=== PATIENT | male | born 1960 | race Caucasian/White ===

== ENCOUNTER 2017-01-24 09:40 | Emergency (ER) | payer MEDICARE, OTHER ==
[~2017-01-24] VITALS: Ht 182.9 cm; Wt 107.0 kg
[~2017-01-24 09:40] MED LIST: ASPI-621 PO; ATOR10TA PO; CARV12.543 PO; CINA60TA PO; FURO80TA77 PO; LORA-445 PO; LOSA1TAB16 PO; PRAS10TA4 PO
[2017-01-24 10:13] LABS: BLOOD UREA NITROGEN 26 mg/dL (7-18)
[2017-01-24] MEDS ORDERED: SODIUM CHLORIDE FLUSH 10ML SYR IVF ONE (11:30)
[2017-01-24] MEDS ORDERED: ONDANSETRON 2MG/ML, 2ML IVPush ONE (11:30)
[2017-01-24] MEDS ORDERED: MORPHINE SULFATE 4 MG/ML, 1ML ONE ×2 (12:39→14:01)
[2017-01-24] MEDS: MORPHINE SULFATE 4 MG/ML, 1ML IVPush PRN ×2 (12:43→14:02)
[2017-01-24] MEDS ORDERED: METRONIDAZOLE PMX 500MG/100ML 100 ML IVPB ONE (14:30)
[2017-01-24] MEDS ORDERED: CIPROFLOXACIN/PMX 400MG/200ML 200 ML IV ONE (14:30)
[2017-01-24] MEDS ORDERED: CIPROFLOXACIN LACTATE 200 MG in DEXTROSE 5% 100 ML IV ONE (14:30)
[2017-01-24] MEDS ORDERED: CIPROFLOXACIN/PMX 400MG/200ML 200 ML ONE (14:45)
[2017-01-24] MEDS ORDERED: METRONIDAZOLE PMX 500MG/100ML 100 ML ONE (14:45)
[2017-01-24] MEDS ORDERED: metroNIDAZOLE 500 MG TABLET ONE (14:45)
[2017-01-24 15:36] VITALS: BP 140/79
== END 2017-01-24 16:33 | disposition home or self-care (01) ==
LOC: ED 12:38
DX: A09 Infectious gastroenteritis and colitis, unspecified (principal); E78.00 Pure hypercholesterolemia, unspecified; I12.0 Hypertensive chronic kidney disease with stage 5 chronic kidney disease or end stage renal disease; N18.6 End stage renal disease; Z99.2 Dependence on renal dialysis; I25.2 Old myocardial infarction
CPT/HCPCS: 36415; 74176; 80048; 82040; 85025; 96374; 96375; 96376; 99285; J0744

== ENCOUNTER 2018-07-16 21:42 | Inpatient (IN) | payer MEDICARE ==
[~2018-07-16] VITALS: Ht 182.9 cm; Wt 111.1 kg
[~2018-07-16 21:42] MED LIST changes: -ASPI-621 PO; +ASPI81TA45 PO; -LOSA1TAB16 PO; +LOSA1TAB19 PO
[2018-07-16] MEDS ORDERED: ACETAMINOPHEN 500 MG TABLET ONE (22:24)
[2018-07-16] MEDS ORDERED: SODIUM CHLORIDE FLUSH 10ML SYR IVF ONE (22:30)
[2018-07-16] MEDS ORDERED: ACETAMINOPHEN 500 MG TABLET PO ONE (22:30)
[2018-07-16 23:03] LABS: BASOPHILS # (AUTO) 0.03 x10^3/uL (0-0.1); BASOPHILS % (AUTO) 1 % (0-1); EOSINOPHILS # (AUTO) 0.17 x10^3/uL (0-0.4); EOSINOPHILS % (AUTO) 3 % (1-7); LYMPHOCYTES # (AUTO) 1.64 x10^3/uL (1-3.4); LYMPHOCYTES % (AUTO) 27 % (22-44); MD NO; MEAN CORPUSCULAR HEMOGLOBIN 36.2 pg (27.5-34.5); MEAN CORPUSCULAR VOLUME 103.2 fL (81-97); MEAN PLATELET VOLUME 7.6 fL (7.4-10.4); MONOCYTES # (AUTO) 0.75 x10^3/uL (0.2-0.8); MONOCYTES % (AUTO) 13 % (2-9); NEUTROPHILS # (AUTO) 3.39 x10^3/uL (1.8-6.8); NEUTROPHILS % (AUTO) 57 % (42-75); PLATELET COUNT 198 x10^3/uL (130-400); RED BLOOD COUNT 3.37 x10^6/uL (4.38-5.82)
[2018-07-16 23:12] LABS: INTERNATIONAL NORMALIZED RATIO 0.96 (0.93-1.1); PROTHROMBIN TIME 10.2 Seconds (9.6-11.5)
[2018-07-16 23:13] LABS: ALBUMIN 3.8 g/dL (3.4-5.0); ANION GAP 7 mmol/L (5-15); CALCIUM 9.6 mg/dL (8.5-10.1); CHLORIDE 95 mmol/L (98-107); CREATININE 6.88 mg/dL (0.7-1.3)
[2018-07-16 23:17] LABS: TROPONIN I < 0.015 ng/mL (0.000-0.045)
[2018-07-17] VITALS (9 sets, daily range): BP systolic 113–149; BP diastolic 73–95
[2018-07-17] MEDS: ACETAMINOPHEN 325 MG TABLET PO PRN ×2 (02:27→21:08)
[2018-07-17] MEDS: NICOTINE 14MG/24 HR PATCH.TD24 TD SCH ×2 (02:27→20:56)
[2018-07-17] MEDS ORDERED: POLYETHYLENE GLYCOL 17 GM PACKET PO PRN (02:30)
[2018-07-17] MEDS ORDERED: ONDANSETRON 2MG/ML, 2ML IVPush PRN (02:30)
[2018-07-17] MEDS ORDERED: PROMETHAZINE 25 MG/ML, 1ML IM PRN (02:30)
[2018-07-17] MEDS ORDERED: LABETALOL 5MG/ML, 20ML IVPush PRN (02:30)
[2018-07-17] MEDS ORDERED: hydrALAzine 20 MG/ML, 1ML IVPush PRN (02:30)
[2018-07-17] MEDS ORDERED: GABAPENTIN 300 MG CAPSULE PO PRN (02:30)
[2018-07-17] MEDS ORDERED: BISACODYL 10 MG SUPP PR PRN (02:30)
[2018-07-17] MEDS ORDERED: DOCUSATE 100 MG CAPSULE PO PRN (02:30)
[2018-07-17] MEDS ORDERED: ONDANSETRON ODT 4 MG PO PRN (02:30)
[2018-07-17 02:43] LABS: FREE T4 (FREE THYROXINE) 0.98 ng/dL (0.76-1.46); THYROID STIMULATING HORMONE 1.45 mIU/L (0.358-3.740)
[2018-07-17 03:48] LABS: HEMOGLOBIN A1C 5.5 % (4.2-6.3)
[2018-07-17] MEDS: ASPIRIN 81 MG TABLET EC PO SCH (06:17)
[2018-07-17] MEDS ORDERED: LORazepam 2 MG/ML, 1ML IVPush ONE (08:30)
[2018-07-17 08:57] LABS: MICROSCOPIC AUTO
[2018-07-17 08:58] LABS: CULTURE INDICATED? NO
[2018-07-17] MEDS ORDERED: LOSARTAN 50MG TABLET PO SCH (09:00)
[2018-07-17] MEDS ORDERED: FUROSEMIDE 80 MG TABLET PO SCH (09:00)
[2018-07-17] MEDS: CINACALCET 30 MG TABLET PO SCH (09:54)
[2018-07-17] MEDS: CHOLECALCIFEROL 1,000 UNIT TABLET PO SCH (09:54)
[2018-07-17] MEDS: CARVEDILOL 12.5 MG TABLET PO SCH ×2 (09:55→20:58)
[2018-07-17] MEDS: HYDROCHLOROTHIAZIDE 12.5 MG CAPSULE PO SCH ×2 (09:55→20:57)
[2018-07-17] MEDS: HEPARIN 5,000 UNITS/ML, 1ML SQ SCH ×2 (09:56→17:21)
[2018-07-17] MEDS: LOSARTAN 50MG TABLET PO SCH ×2 (11:49→20:58)
[2018-07-17] MEDS ORDERED: ATORVASTATIN 10 MG TABLET PO SCH (21:00)
[2018-07-18] MEDS: HEPARIN 5,000 UNITS/ML, 1ML SQ SCH ×3 (01:00→17:00)
[2018-07-18 02:30] VITALS: BP 124/81
[2018-07-18 02:35] VITALS: BP 145/86
[2018-07-18 02:40] VITALS: BP 151/100
[2018-07-18 04:17] LABS: ALBUMIN 3.3 g/dL (3.4-5.0); ANION GAP 12 mmol/L (5-15); CALCIUM 8.6 mg/dL (8.5-10.1); CHLORIDE 97 mmol/L (98-107)
[2018-07-18 04:21] LABS: ALANINE AMINOTRANSFERASE 34 U/L (12-78); ALKALINE PHOSPHATASE 52 U/L (45-117); BILIRUBIN,TOTAL 0.3 mg/dL (0.2-1.0); CHOL/HDL RATIO 3.1; CHOLESTEROL, TOTAL 145 mg/dL (140-239); HDL CHOL % 32 % (26-37); HDL CHOLESTEROL (DIRECT) 47 mg/dL (40-60); LDL CHOLESTEROL,CALCULATED 69 mg/dL (54-169); LDL/HDL RATIO 1.5 (0.5-3.0); TOTAL PROTEIN 6.4 g/dL (6.4-8.2); TRIGLYCERIDES 147 mg/dL (50-200); VLDL CHOLESTEROL 29 mg/dL (0-25)
[2018-07-18 04:22] LABS: BASOPHILS # (AUTO) 0.03 x10^3/uL (0-0.1); BASOPHILS % (AUTO) 1 % (0-1); EOSINOPHILS # (AUTO) 0.16 x10^3/uL (0-0.4); EOSINOPHILS % (AUTO) 3 % (1-7); LYMPHOCYTES # (AUTO) 1.92 x10^3/uL (1-3.4); LYMPHOCYTES % (AUTO) 33 % (22-44); MD NO; MEAN CORPUSCULAR HEMOGLOBIN 35.9 pg (27.5-34.5); MEAN CORPUSCULAR HGB CONC 34.8 g/dL (33.2-36.2); MEAN CORPUSCULAR VOLUME 103.3 fL (81-97); MEAN PLATELET VOLUME 8.1 fL (7.4-10.4); MONOCYTES # (AUTO) 0.65 x10^3/uL (0.2-0.8); MONOCYTES % (AUTO) 11 % (2-9); NEUTROPHILS % (AUTO) 53 % (42-75); PLATELET COUNT 156 x10^3/uL (130-400); RED BLOOD COUNT 2.92 x10^6/uL (4.38-5.82); RED CELL DISTRIBUTION WIDTH 13.9 % (9.4-14.8)
[2018-07-18] MEDS: ASPIRIN 81 MG TABLET EC PO SCH (05:38)
[2018-07-18 07:00] VITALS: BP_SYST 127; BP_SYST 138; BP_SYST 143; BP_DIAS 79; BP_DIAS 88; BP_DIAS 94
[2018-07-18] MEDS: ACETAMINOPHEN 325 MG TABLET PO PRN (12:46)
[2018-07-18] MEDS ORDERED: FLUT9.9S NAS (13:12)
[2018-07-18 14:00] VITALS: BP 184/113
[2018-07-18 15:13] VITALS: BP 128/94
[2018-07-18] MEDS: CARVEDILOL 12.5 MG TABLET PO SCH (17:45)
[2018-07-18] MEDS: LOSARTAN 50MG TABLET PO SCH (17:45)
[2018-07-18] MEDS: CHOLECALCIFEROL 1,000 UNIT TABLET PO SCH (17:45)
[2018-07-18] MEDS: CINACALCET 30 MG TABLET PO SCH (17:46)
[2018-07-18] MEDS: HYDROCHLOROTHIAZIDE 12.5 MG CAPSULE PO SCH (17:47)
== END 2018-07-18 18:05 | disposition home or self-care (01) | DRG 73 ==
LOC: ED 22:59 → EDIP 23:22 → 4WST 07-17 00:41
PROVIDERS: ADMIT Internal Medicine; ATTEND Internal Medicine
PROC: 5A1D70Z Performance of Urinary Filtration, Intermittent, Less than 6 Hours Per Day (ICD-10-PCS; principal; 2018-07-18)
DX: G90.9 Disorder of the autonomic nervous system, unspecified (principal); N18.6 End stage renal disease; I13.2 Hypertensive heart and chronic kidney disease with heart failure and with stage 5 chronic kidney disease, or end stage renal disease; E86.0 Dehydration; F10.229 Alcohol dependence with intoxication, unspecified; D63.1 Anemia in chronic kidney disease; E78.00 Pure hypercholesterolemia, unspecified; E78.5 Hyperlipidemia, unspecified; S09.90XA Unspecified injury of head, initial encounter; F17.210 Nicotine dependence, cigarettes, uncomplicated; H81.10 Benign paroxysmal vertigo, unspecified ear; I27.20 Pulmonary hypertension, unspecified; I50.9 Heart failure, unspecified; K21.9 Gastro-esophageal reflux disease without esophagitis; N25.0 Renal osteodystrophy; I25.10 Atherosclerotic heart disease of native coronary artery without angina pectoris; F41.9 Anxiety disorder, unspecified; W18.39XA Other fall on same level, initial encounter; Y93.89 Activity, other specified; Y92.89 Other specified places as the place of occurrence of the external cause; Y99.8 Other external cause status; Z95.5 Presence of coronary angioplasty implant and graft; Z99.2 Dependence on renal dialysis; Z86.19 Personal history of other infectious and parasitic diseases
CPT/HCPCS: 36415; 70450; 70551; 80048; 80053; 80061; 81001; 82040; 82306; 82607; 83036; 83735; 84439; 84443; 84484; 85025; 85610; 86704; 86706; 86803; 87340; 87521; 93005; 93306; 93880; 99285; G0378; J1644; J2060

== ENCOUNTER 2018-09-07 05:54 | Emergency (ER) | payer MEDICARE, OTHER ==
[~2018-09-07] VITALS: Ht 182.9 cm; Wt 118.7 kg
[~2018-09-07 05:54] MED LIST changes: +FLUT9.9S NAS
[2018-09-07 06:03] VITALS: BP 146/103
--- NOTE | 2018-09-07 06:33 | NUR ---
DR. GARCIA AT TO EVAL PT. AND DISCUSS POC.
[2018-09-07] MEDS ORDERED: IBUPROFEN 800 MG TABLET ONE (06:40)
--- NOTE | 2018-09-07 06:43 | NUR ---
ATTEMPTED TO MEDICATE PT. WITH ORDERED MED; PT. REPORTS AT 0400 HE ALREADY TOOK 800MG IBUPROFEN AT HOME WHEN HE WOKE UP WITH THE PAIN. WILL UPDATE DR. GARCIA.
--- NOTE | 2018-09-07 06:45 | NUR ---
PT. TO X-RAY VIA [facility].
[2018-09-07] MEDS ORDERED: IBUPROFEN 200 MG TABLET PO ONE (07:00)
--- NOTE | 2018-09-07 07:07 | NUR ---
DR. GARCIA AWARE OF PT. HAVING ALREADY HAD TAKEN IBUPROFEN; NO NEW ORDERS AT THIS TIME.
--- NOTE | 2018-09-07 07:08 | NUR ---
REPORT TO ANDREA ESPINOZA.
--- NOTE | 2018-09-07 07:38 | NUR ---
Pt in no distress with minimal pain while lying in [place]. Awaiting dispo
== END 2018-09-07 07:48 | disposition home or self-care (01) ==
LOC: ED 06:57
DX: M25.461 Effusion, right knee (principal); J20.9 Acute bronchitis, unspecified; M17.11 Unilateral primary osteoarthritis, right knee; F41.1 Generalized anxiety disorder; I25.2 Old myocardial infarction; I11.0 Hypertensive heart disease with heart failure; I50.9 Heart failure, unspecified
CPT/HCPCS: 71045; 99283

== ENCOUNTER 2019-06-30 08:47 | Outpatient (CLI) | payer MEDICARE, OTHER ==
[~2019-06-30 08:47] MED LIST changes: +OMEP-110 PO; +REGADENOSON 0.4 MG/5 ML SYRINGE ONE; +SEVE800T8 PO
== END 2019-06-30 23:59 | disposition home or self-care (01) ==
LOC: CFH 08:47
PROVIDERS: ATTEND Internal Medicine Cardiovascular Disease
DX: I25.89 Other forms of chronic ischemic heart disease (principal); I25.10 Atherosclerotic heart disease of native coronary artery without angina pectoris; I10 Essential (primary) hypertension; F17.200 Nicotine dependence, unspecified, uncomplicated
CPT/HCPCS: 78452; 93017; A9502; J2785

== ENCOUNTER 2019-07-24 17:15 | Emergency (ER) | payer MEDICARE, OTHER ==
[~2019-07-24] VITALS: Ht 182.9 cm; Wt 116.7 kg
[~2019-07-24 17:15] MED LIST changes: -REGADENOSON 0.4 MG/5 ML SYRINGE ONE
[2019-07-24] MEDS ORDERED: HYDROcodone/APAP 5/325 TABLET ONE ×2 (18:00→19:16)
[2019-07-24] MEDS ORDERED: HYDROcodone/APAP 5/325 TABLET PO PRN (18:00)
[2019-07-24] MEDS ORDERED: CARV25TA12 PO (18:17)
[2019-07-24] MEDS ORDERED: HYDR-3342 PO (18:18)
[2019-07-24 18:50] VITALS: BP 113/70
--- NOTE | 2019-07-24 18:50 | NUR ---
REPORT RECEIVED AND CARE ASSUMED. PT RETURNED FROM CT. NO ACUTE NEURO CHANGES NOTED. VSS. CALL LIGHT IN REACH. NO NEEDS EXPRESSED.
--- NOTE | 2019-07-24 18:59 | NUR ---
ERP AT BEDSIDE TO RECHECK
--- NOTE | 2019-07-24 19:21 | NUR ---
ATTEMPTING TO D/C PT. PT REQUESTING NORCO PRIOR TO D/C. DISCUSSED WITH ERP AND ORDER RECEIVED. PT MEDICATED PER OCT. PT DOES TAKE NORCO PRN AT HOME AND IS IN THE CARE OF HIS DAUGHTER--DECLINING TO STAY FOR REASSESS. OK TO D/C PER ERP. AMBULATES WITH STEADY GAIT. VSS.
[2019-07-24] MEDS ORDERED: HYDROcodone/APAP 5/325 TABLET PO ONE (19:30)
== END 2019-07-24 19:24 | disposition home or self-care (01) ==
LOC: ED 18:28
DX: S06.0X9A Concussion with loss of consciousness of unspecified duration, initial encounter (principal); S60.221A Contusion of right hand, initial encounter; I11.0 Hypertensive heart disease with heart failure; I50.9 Heart failure, unspecified; I25.2 Old myocardial infarction; X58.XXXA Exposure to other specified factors, initial encounter; Y93.89 Activity, other specified; Y92.89 Other specified places as the place of occurrence of the external cause; Y99.8 Other external cause status
CPT/HCPCS: 70450; 93005; 99284

== ENCOUNTER 2020-02-04 14:26 | Emergency (ER) | payer MEDICARE, OTHER ==
[~2020-02-04] VITALS: Ht 182.9 cm; Wt 116.8 kg
[~2020-02-04 14:26] MED LIST changes: +CARV25TA12 PO; +HYDR-3342 PO
--- NOTE | 2020-02-04 15:17 | NUR ---
CUTTING MACHINE TENDER: PT TO ROOM FROM LOBBY AT THIS TIME. FERMIN
[2020-02-04] MEDS ORDERED: ALBUTEROL SULFATE 2.5 MG/3 ML NPPB ONE (16:00)
[2020-02-04] MEDS ORDERED: BENZONATATE 100 MG CAPSULE PO ONE (16:00)
--- NOTE | 2020-02-04 16:11 | NUR ---
GELACIO HIRSCH AT BEDSIDE FOR EVAL
[2020-02-04] MEDS ORDERED: ALBUTEROL SULFATE 2.5MG/0.5ML ONE (16:17)
[2020-02-04] MEDS ORDERED: BENZONATATE 100 MG CAPSULE ONE (16:17)
[2020-02-04 16:22] VITALS: BP 129/75
--- NOTE | 2020-02-04 17:07 | NUR ---
DISCHARGE INSTRUCTIONS REVIEWED
== END 2020-02-04 17:13 | disposition home or self-care (01) ==
LOC: ED 17:04
DX: J44.1 Chronic obstructive pulmonary disease with (acute) exacerbation (principal); I13.2 Hypertensive heart and chronic kidney disease with heart failure and with stage 5 chronic kidney disease, or end stage renal disease; N18.6 End stage renal disease; I50.9 Heart failure, unspecified; I25.2 Old myocardial infarction; M19.90 Unspecified osteoarthritis, unspecified site; E78.00 Pure hypercholesterolemia, unspecified
CPT/HCPCS: 71045; 93005; 94640; 99283; J7512; J7613

== ENCOUNTER 2020-04-10 19:33 | Emergency (ER) | payer MEDICARE, OTHER ==
[~2020-04-10] VITALS: Ht 185.4 cm; Wt 257.0 kg
[2020-04-10 19:38] VITALS: BP 181/97
[2020-04-10] MEDS ORDERED: ALBUTEROL/IPRATROPIUM 2.5MG/0.5MG, 3 ML NPPB ONE (20:30)
[2020-04-10] MEDS ORDERED: ALBUTEROL/IPRATROPIUM 2.5MG/0.5MG, 3 ML ONE (20:41)
== END 2020-04-10 22:27 | disposition home or self-care (01) ==
LOC: ED 22:15
DX: J43.9 Emphysema, unspecified (principal); K42.9 Umbilical hernia without obstruction or gangrene; R06.02 Shortness of breath; Z76.0 Encounter for issue of repeat prescription
CPT/HCPCS: 71045; 94640; 99283; J7512

== ENCOUNTER 2020-04-27 01:46 | Emergency (ER) | payer MEDICARE, OTHER ==
[~2020-04-27] VITALS: Ht 182.9 cm; Wt 119.0 kg
[2020-04-27] MEDS ORDERED: LOSA100T14 PO (01:54)
[2020-04-27 02:27] LABS: BASOPHILS # (AUTO) 0.05 x10^3/uL (0-0.1); BASOPHILS % (AUTO) 1 % (0-1); EOSINOPHILS # (AUTO) 0.15 x10^3/uL (0-0.4); EOSINOPHILS % (AUTO) 3 % (1-7); LYMPHOCYTES # (AUTO) 1.07 x10^3/uL (1-3.4); LYMPHOCYTES % (AUTO) 18 % (22-44); MD NO; MEAN CORPUSCULAR HEMOGLOBIN 33.1 pg (27.5-34.5); MEAN CORPUSCULAR HGB CONC 32.3 g/dL (33.2-36.2); MEAN PLATELET VOLUME 7.2 fL (7.4-10.4); MONOCYTES # (AUTO) 0.83 x10^3/uL (0.2-0.8); MONOCYTES % (AUTO) 14 % (2-9); NEUTROPHILS # (AUTO) 3.88 x10^3/uL (1.8-6.8); NEUTROPHILS % (AUTO) 65 % (42-75); PLATELET COUNT 161 x10^3/uL (130-400); RED BLOOD COUNT 3.21 x10^6/uL (4.38-5.82); RED CELL DISTRIBUTION WIDTH 17.7 % (9.4-14.8)
--- NOTE | 2020-04-27 02:27 | NUR ---
60 YO MALE PRESENTS TO ED WITH BILAT PITTING EDEMA, STATES EDEMA HAS BEEN GETTING WORSE OVER LAST 10 DAYS. R LEG SLIGHTLY GREATER THEN L. PT ATTACHED TO SP02 AND BP MONITOR. BED RAILS UP X2, CALL LIGHT WITHIN REACH, PT EDUCATED ON USE.
[2020-04-27 02:44] LABS: ALBUMIN 3.4 g/dL (3.4-5.0); ANION GAP 10 mmol/L (5-15); CALCIUM 9.2 mg/dL (8.5-10.1); CHLORIDE 99 mmol/L (98-107); CREATININE 6.22 mg/dL (0.7-1.3)
[2020-04-27 02:51] VITALS: BP 137/80
--- NOTE | 2020-04-27 02:59 | NUR ---
PT RESTING COMFORTABLY, VSS. PT ASKING FOR WATER, INSTRUCTED ON NPO STATUS, GLYCERIN SWABS PROVIDED. NO OTHER COMPLAINTS/REQUESTS.
== END 2020-04-27 04:20 ==
LOC: ED 02:38
DX: R60.0 Localized edema (principal); M79.672 Pain in left foot; M79.671 Pain in right foot; M79.89 Other specified soft tissue disorders; R06.02 Shortness of breath; J44.9 Chronic obstructive pulmonary disease, unspecified; I11.0 Hypertensive heart disease with heart failure; I50.9 Heart failure, unspecified; E78.00 Pure hypercholesterolemia, unspecified; F17.210 Nicotine dependence, cigarettes, uncomplicated; N18.6 End stage renal disease; Z99.2 Dependence on renal dialysis
CPT/HCPCS: 36415; 71045; 80048; 82040; 83880; 84484; 85025; 93970; 99285; 99406

== ENCOUNTER 2020-05-27 17:33 | Emergency (ER) | payer MEDICARE, OTHER ==
[~2020-05-27] VITALS: Ht 182.9 cm; Wt 120.8 kg
[~2020-05-27 17:33] MED LIST changes: +LOSA100T14 PO
--- NOTE | 2020-05-27 17:58 | NUR ---
PT C/O SOB THAT HAS BEEN WORSENING. PT STATES HE ISN'T SLEEPING BECAUSE HE IS SHORT OF BREATH. PT GOES TO DIALYSIS 3X WEEK AND WENT TO HID APPT THIS AM. PT HAS AN ACTIVE COUGH WITH YELLOW SPUTUM PRODUCED.
[2020-05-27 18:32] LABS: BASOPHILS % (AUTO) 1 % (0-1); EOSINOPHILS % (AUTO) 6 % (1-7); LYMPHOCYTES % (AUTO) 15 % (22-44); MEAN CORPUSCULAR HEMOGLOBIN 33.6 pg (27.5-34.5); MEAN CORPUSCULAR HGB CONC 32.9 g/dL (33.2-36.2); MEAN PLATELET VOLUME 7.8 fL (7.4-10.4); MONOCYTES % (AUTO) 9 % (2-9); NEUTROPHILS % (AUTO) 69 % (42-75); PLATELET COUNT 236 x10^3/uL (130-400); RED BLOOD COUNT 3.01 x10^6/uL (4.38-5.82); RED CELL DISTRIBUTION WIDTH 17.5 % (9.4-14.8)
[2020-05-27 18:43] LABS: ALANINE AMINOTRANSFERASE 22 U/L (12-78); ALBUMIN 3.7 g/dL (3.4-5.0); ANION GAP 8 mmol/L (5-15); CALCIUM 8.6 mg/dL (8.5-10.1); CHLORIDE 97 mmol/L (98-107); CREATININE 6.24 mg/dL (0.7-1.3)
[2020-05-27 18:44] LABS: ALKALINE PHOSPHATASE 71 U/L (45-117); TOTAL PROTEIN 7.3 g/dL (6.4-8.2)
--- NOTE | 2020-05-27 18:49 | NUR ---
SITTING UP ON EDGE OF BED COUGHING AND ATTEMPTING TO CLEAR MUCOUS. AWAITING FOR RE-EVAL
--- NOTE | 2020-05-27 18:54 | NUR ---
REPORT TO JOSE MENDEZ
--- NOTE | 2020-05-27 18:54 | NUR ---
Pt report from Bhargavi pitts. This rn to assume care of pt.
[2020-05-27 19:04] LABS: MD NO
--- NOTE | 2020-05-27 19:04 | NUR ---
Pt states no further needs at this time. Awaiting testing results.
[2020-05-27 19:05] VITALS: BP 138/79
[2020-05-27] MEDS ORDERED: LORazepam 0.5MG TABLET ONE (20:11)
[2020-05-27] MEDS ORDERED: LORazepam 0.5MG TABLET PO ONE (20:30)
== END 2020-05-27 20:20 | disposition home or self-care (01) ==
LOC: ED 18:08
DX: J44.9 Chronic obstructive pulmonary disease, unspecified (principal); R00.0 Tachycardia, unspecified; R07.9 Chest pain, unspecified; E78.00 Pure hypercholesterolemia, unspecified; I12.0 Hypertensive chronic kidney disease with stage 5 chronic kidney disease or end stage renal disease; N18.6 End stage renal disease; Z99.2 Dependence on renal dialysis; F17.210 Nicotine dependence, cigarettes, uncomplicated
CPT/HCPCS: 36415; 71045; 80053; 85025; 93005; 99285

== ENCOUNTER 2020-06-05 14:23 | Emergency (ER) | payer MEDICARE, OTHER ==
[~2020-06-05] VITALS: Ht 182.9 cm; Wt 120.1 kg
[2020-06-05 15:25] LABS: BASOPHILS % (AUTO) 1 % (0-1); EOSINOPHILS % (AUTO) 10 % (1-7); LYMPHOCYTES % (AUTO) 15 % (22-44); MEAN CORPUSCULAR HEMOGLOBIN 33.7 pg (27.5-34.5); MEAN CORPUSCULAR HGB CONC 32.6 g/dL (33.2-36.2); MEAN PLATELET VOLUME 7.7 fL (7.4-10.4); MONOCYTES % (AUTO) 9 % (2-9); NEUTROPHILS % (AUTO) 66 % (42-75); PLATELET COUNT 216 x10^3/uL (130-400); RED BLOOD COUNT 3.06 x10^6/uL (4.38-5.82); RED CELL DISTRIBUTION WIDTH 17.9 % (9.4-14.8)
[2020-06-05 15:28] LABS: ALBUMIN 3.8 g/dL (3.4-5.0); ANION GAP 8 mmol/L (5-15); CALCIUM 9.6 mg/dL (8.5-10.1); CHLORIDE 99 mmol/L (98-107); CREATININE 8.98 mg/dL (0.7-1.3)
--- NOTE | 2020-06-05 15:44 | NUR ---
PT REPORTS HE'S SICK FOR 1 WEEK WITH COUGH, ALSO FEELS ANXIOUS. PLACED ON VITALS MONITORS. CALL LIGHT WITHIN REACH. XRAY AT BEDSIDE.
[2020-06-05] MEDS ORDERED: ALBUTEROL/IPRATROPIUM 2.5MG/0.5MG, 3 ML ONE ×2 (15:52→16:30)
[2020-06-05 15:53] LABS: ANISOCYTOSIS 1+; MD MORPH REVIEW ONLY
[2020-06-05 15:54] LABS: <PLATELET ESTIMATE> ADEQUATE; <PLT MORPHOLOGY> NORMAL PLT MORPH; OVALOCYTES 1+
[2020-06-05] MEDS: ALBUTEROL/IPRATROPIUM 2.5MG/0.5MG, 3 ML NPPB SCH ×2 (15:57→16:32)
[2020-06-05] MEDS ORDERED: LORazepam 1MG TABLET ONE (17:56)
[2020-06-05 17:58] VITALS: BP 159/108
[2020-06-05] MEDS ORDERED: LORazepam 1MG TABLET PO ONE (18:00)
== END 2020-06-05 18:08 | disposition home or self-care (01) ==
LOC: ED 17:50
DX: J20.9 Acute bronchitis, unspecified (principal); R06.09 Other forms of dyspnea; F41.1 Generalized anxiety disorder; I13.2 Hypertensive heart and chronic kidney disease with heart failure and with stage 5 chronic kidney disease, or end stage renal disease; N18.6 End stage renal disease; I50.9 Heart failure, unspecified; Z99.2 Dependence on renal dialysis; J44.9 Chronic obstructive pulmonary disease, unspecified; I25.2 Old myocardial infarction; E78.00 Pure hypercholesterolemia, unspecified
CPT/HCPCS: 36415; 71045; 80048; 82040; 83735; 83880; 85025; 93005; 94640; 99285